=== PATIENT | female | born 1990 | race Caucasian/White ===

== ENCOUNTER 2016-08-07 12:04 | Emergency (ER) | payer OTHER ==
[2016-08-07 12:00] LABS: URINE BILIRUBIN NEGATIVE (NEG); URINE BLOOD LARGE (NEG); URINE GLUCOSE (UA) NEGATIVE (NEG); URINE KETONE NEGATIVE (NEG); URINE LEUKOCYTE ESTERASE POSITIVE (NEG); URINE NITRITE NEGATIVE (NEG); URINE PROTEIN MODERATE (NEG)
[2016-08-07 12:01] LABS: URINE APPEARANCE CLEAR; URINE COLOR YELLOW
[~2016-08-07 12:04] MED LIST: NO HOME MEDICATION XX; [UNRECOGNIZED DRUG - REMARK]
[2016-08-07 12:06] LABS: URINE MUCUS 1+; URINE RBC 30-40 /[HPF] (0-5)
[2016-08-07 12:26] LABS: BASO % 0.5 % (0-2); BASO ABSOLUTE COUNT 0.1 tho/cmm (0.0-0.2); EOS % 0.7 % (0-7); EOSINOPHIL ABSOLUTE COUNT 0.1 tho/cmm (0.0-0.7); HCT-HEMATOCRIT 40.6 % (34.0-49.0); HGB-HEMOGLOBIN 13.8 gm/dl (12.0-15.5); IMMATURE GRANULOCYTES ABSOLUTE 0.03 tho/cmm (0-0.03); IMMATURE GRANULOCYTES PERCENT 0.2 % (0-0.3); LYMPH % 19.4 % (20-45); LYMPH ABSOLUTE COUNT 2.9 tho/cmm (0.8-4.5); MCH (MEAN CORPUSCULAR HGB) 30.5 pg (28.0-32.0); MCV (MEAN CELL VOLUME) 89.8 fl (82.0-96.0); MEAN PLATELET VOLUME 11.9 cmc (9.4-12.4); MONOCYTE ABSOLUTE COUNT 0.8 tho/cmm (0.0-1.2); NEUTROPHILS % 74.2 % (40-80); PLATELET COUNT 293 tho/cmm (150-450); RED BLOOD COUNT 4.52 mil/cmm (4.00-5.20); RED CELL DISTRIBUTION WIDTH 12.5 % (12.4-16.4); WHITE BLOOD COUNT 14.9 tho/cmm (4.0-10.0)
[2016-08-07 12:38] LABS: ALB/GLOB RATIO 1.5 (0.8-2.0); ALBUMIN 4.7 g/dl (3.5-5.0); ALKALINE PHOSPHATASE 101 U/L (33-138); ALT/SGPT 27 U/L (12-78); BILIRUBIN,TOTAL 0.6 mg/dl (0-1.5); BLOOD UREA NITROGEN 12 mg/dl (6-24); CALCIUM 9.5 mg/dl (8.5-10.5); CARBON DIOXIDE-VENOUS 21 mmol/L (22-32); CHLORIDE 109 mmol/l (96-110); CREATININE 0.74 mg/dl (0.50-1.10); GLUCOSE 122 mg/dL (70-110); SODIUM 141 mmol/L (135-145); eGFR VALUE FOR BLACK >90 mL/Min
[2016-08-07 12:45] LABS: ANION GAP 14 mmol/L (0-20); AST/SGOT 25 U/L (10-40); C-REACTIVE PROTEIN <0.3 mg/dl (0-0.9); POTASSIUM 3.4 mmol/L (3.7-5.1)
[2016-08-07] MEDS ORDERED: CIPRO250 M2 PO (13:34)
[2016-08-07] MEDS ORDERED: ZOFRAN ODT4 MG PO (13:34)
[2016-08-07] MEDS ORDERED: NORCO 5-325 TA1 EACH PO (13:34)
[2016-08-07] MEDS ORDERED: FLOMAX0.4 M1 PO (13:36)
== END 2016-08-07 13:48 ==
LOC: EDMED 12:04
PROVIDERS: Nurse Practitioner Family
DX: N13.2 Hydronephrosis with renal and ureteral calculous obstruction (principal); Z98.890 Other specified postprocedural states; Z90.89 Acquired absence of other organs
CPT/HCPCS: J1885; J2270; J2405; J7030; Q9967